=== PATIENT | female | born 1985 | race Caucasian/White ===

== ENCOUNTER 2017-12-21 03:28 | Inpatient (IN) ==
[2017-12-21] MEDS ORDERED: Lidocaine 1% Inj 50 ML Vial ONE (03:48)
[2017-12-21] MEDS ORDERED: Oxytocin 30 Units/500ml Premix 30 UNITS/500 ML BAG ONE (03:54)
[2017-12-21] MEDS ORDERED: Sod Chloride 0.9% Inj 1,000 ML IV.CONT PRN (03:57)
[2017-12-21] MEDS ORDERED: Sodium Chlor 0.9% Inj 500 ML IV.SIG PRN (03:57)
[2017-12-21] MEDS ORDERED: fentaNYL Citrate Inj 100 MCG/2 ML Ampul IV.PUSH PRN ×2 (03:57)
[2017-12-21] MEDS ORDERED: Oxytocin 30 Units/500ml Premix 30 UNITS/500 ML BAG IV.SIG ONE ×2 (03:57→14:54)
[2017-12-21] MEDS ORDERED: Naloxone Inj 0.4 MG/ML Vial IV.PUSH PRN ×2 (03:57→03:58)
[2017-12-21] MEDS ORDERED: Ibuprofen 400 MG Tablet PO PRN (03:58)
[2017-12-21] MEDS ORDERED: Benzocaine 20% Top Spray 60 ML Can TOPICAL PRN (03:58)
[2017-12-21] MEDS ORDERED: Witch Hazel 50%/Glyderin 12.5% 40 Pad Jar RECTAL PRN (03:58)
[2017-12-21] MEDS ORDERED: Bisacodyl 10 MG Supp RECTAL PRN (03:58)
[2017-12-21] MEDS ORDERED: Acetaminophen 325 MG Tablet PO PRN (03:58)
[2017-12-21] MEDS ORDERED: Zolpidem Tartrate 5 MG Tablet PO PRN (03:58)
[2017-12-21] MEDS ORDERED: Oxytocin 30 Units/500ml Premix 30 UNITS/500 ML BAG IV.CONT SCH (04:00)
[2017-12-21] MEDS ORDERED: Citric Acid/Sodium Citrate Liq 30 ML UDC PO SCH (04:00)
--- NOTE | 2017-12-21 04:03 | P.HPOB ---
History of Present Illness Primary Care Physician: No Primary Care Physician Dr. Banks Chief Complaint: Labor History of Present Illness: Patient is a 32-year-old white female at 39 weeks patient manuel Zuniga presents with precipitous labor completely dilated membranes ruptured in the OB ED. Weeks Gestation:: 39 Para: 1 : 2 - Inpatient Certification I certify that the inpatient services were ordered in accordance with Medicare regulations governing the order. This includes certification that hospital inpatient services are reasonable and necessary and in the case of services not specified as inpatient-only under 42 CFR 419.22(n), that they are appropriately provided as inpatient services in accordance to with the 2-midnight benchmark under 43 CFR 412.3(e) Estimated Total Length of Stay (Days): 2 Plans for Post Hospital Care: Home Review of Systems Constitutional: Denies anorexia, Denies body ache(s), Denies chills, Denies daytime sleepiness, Denies excessive sweating, Denies fatigue, Denies fever(s), Denies headache(s), Denies increased appetite, Denies lack of energy, Denies malaise, Denies night sweats, Denies weakness, Denies weight gain, Denies weight loss, Denies other Cardiovascular: Denies bluish discoloration of hand/feet, Denies chest pain, Denies chest pain at rest, Denies chest pain with activity, Denies excessive sweating, Denies fainting, Denies fast heart rate, Denies foot swelling, Denies generalized swelling, Denies irregular heart rhythm, Denies leg pain with activity, Denies leg sores, Denies leg swelling, Denies lightheadedness, Denies radiating jaw, neck or arm pain, Denies rapid, pounding, or irregular heartbeat , Denies shortness of breath, Denies shortness of breath with activity, Denies shortness of breath when lying down, Denies shortness of breath causing sudden awakening, Denies slow heart rate, Denies other Respiratory: Denies change in phlegm color, Denies chest congestion, Denies cough, Denies coughing up blood, Denies excessive phlegm production, Denies pain on inspiration, Denies pain with cough, Denies shortness of breath, Denies shortness of breath with activity, Denies snoring, Denies stridor, Denies wheezing, Denies other Genitourinary: Denies abnormal periods, Denies abnormal vaginal bleeding, Denies absent period, Denies bleeding between periods, Denies blood in urine, Denies difficulty starting urination, Denies difficulty urinating, Denies dribbling after urination, Denies frequent nighttime urination, Denies genital itching, Denies genital lesions, Denies heavy periods, Denies hot flashes, Denies light periods, Denies nipple discharge, Denies painful intercourse, Denies painful periods, Denies painful urination, Denies pelvic pain, Denies prolapse symptoms, Denies sexual problems, Denies side pain, Denies urinary incontinence, Denies urinary urgency, Denies vaginal discharge, Denies vaginal dryness, Denies vaginal odor, Denies vaginal itching, Denies other Musculoskeletal: Denies abnormal walking, Denies back pain, Denies body aches, Denies decreased muscle mass, Denies deformity, Denies joint pain, Denies joint swelling, Denies limited joint movement, Denies loss of height, Denies muscle cramps, Denies muscle weakness, Denies neck pain, Denies numbness, Denies radiating pain into limb, Denies stiffness, Denies tingling, Denies other Neurologic: Denies abnormal hearing, Denies abnormal movements, Denies abnormal speech, Denies abnormal walking, Denies behavioral changes, Denies burning sensations, Denies confusion, Denies dizziness, Denies fainting, Denies frequent falls, Denies headache(s), Denies lack of coordination, Denies localized weakness, Denies loss of vision, Denies memory loss, Denies numbness, Denies other visual disturbances, Denies radiating pain, Denies restless legs, Denies convulsions, Denies seizure-like activity, Denies sensory deficit, Denies tingling, Denies tingling/numbness/burning sensations, Denies tremor(s), Denies unsteadiness, Denies weakness, Denies other PMFSH - Tobacco History Smoking Status: Never smoker - Alcohol History How Often Do You Have a Drink Containing Alcohol: Never - Travel History History of Recent Travel: No Recent Travel in the [facility] Within the Last 8 Weeks: No Recent Travel Out of the Country Within the Last 8 Weeks: No Medications and Allergies Active Medications: Active Medications Acetaminophen (Tylenol) 650 mg PO Q4H PRN PRN Reason: PAIN SCALE 1 TO 2 Al Hydroxide/Mg Hydroxide (Milk Of Magnesia Liq) 30 ml PO Q12H PRN PRN Reason: Mild Constipation Benzocaine (Americaine 20% Top [place]) 1 spray TOPICAL Q4H PRN PRN Reason: For Perineum Discomfort Bisacodyl (Dulcolax Supp) 10 mg RECTAL DAILY PRN PRN Reason: SEVERE CONSITIPATION Citric Acid/Sodium Citrate (Sodium Citrate/Citric Acid Liq) 30 ml PO [employer] [facility] Stop: 12/25/17 03:59 Fentanyl Citrate (Fentanyl Inj) 50 mcg IV.PUSH Q1H PRN PRN Reason: Pain Scale 3 - 5 Fentanyl Citrate (Fentanyl Inj) 100 mcg IV.PUSH Q1H PRN PRN Reason: PAIN SCALE 6 TO 10 Lactated Ringer's (Lr 1000 Ml Inj) 1,000 mls @ 125 mls/hr IV.CONT .Q8H LAURA Lactated Ringer's (Lr 1000 Ml Inj) 1,000 mls @ 3,000 mls/hr IV.SIG UNSCH PRN PRN Reason: compromise or epidural Sodium Chloride (Ns Inj) 500 mls @ 1,000 mls/hr IV.SIG UNSCH PRN PRN Reason: SEE LABEL COMMENTS Sodium Chloride (Ns Inj) 1,000 mls @ 100 mls/hr IV.CONT .Q10H PRN PRN Reason: SEE LABEL COMMENTS Oxytocin (Pitocin 30 Units/Ns 500 Ml Premix) 30 units in 500 mls @ 999 mls/hr IV.SIG BOLUS ONE Stop: 12/21/17 04:27 Ibuprofen (Motrin) 800 mg PO Q8H PRN PRN Reason: For cramping Lactulose (Lactulose Liq) 30 ml PO DAILY PRN PRN Reason: SEVERE CONSITIPATION Lidocaine HCl (Xylocaine 1% Inj) 0.1 ml I-DERMAL PRN PRN PRN Reason: For IV start Stop: 12/24/17 03:56 Lidocaine HCl (Xylocaine 1% Inj) 10 ml INFILTRATN PRN PRN PRN Reason: For episiotomy repair Stop: 12/23/17 03:56 Mineral Oil (Muri-Lube Oil) 10 ml TOPICAL PRN PRN PRN Reason: PRN perineal massage Naloxone HCl (Narcan Inj) 0.1 mg IV.PUSH Q2M PRN PRN Reason: for opiate reversal Allergies Allergy/AdvReac Type Severity Reaction Status Date / Time No Known Allergies Allergy Unverified 12/21/17 03:56 Exam - Constitutional no acute distress, moderate distress - Routine HEENT Exam Head: Present: normocephalic, atraumatic Eye: Present: PERRL - Routine Respiratory Exam Present: CTA bilaterally - Routine Cardiovascular Exam Present: RRR - Routine Abdominal Exam Comments: Term size uterus - Routine Exam Comments: Cervix completely dilated on admission 100% effaced with initially bulging membranes were water broke in OB ED and was moderate meconium - Routine Neurological Exam Present: alert, oriented X3, CN II-XII intact Caprini VTE Risk Assessment Caprini VTE Risk Assessment: No/Low Risk (score <= 1) Caprini Risk Assessment Model: Point Value = 1 Point Value = 2 Point Value = 3 Point Value = 5 Age 41-60 Minor surgery BMI > 25 kg/m2 Swollen legs Varicose veins or History of unexplained or recurrent spontaneous Oral contraceptives or hormone replacement Sepsis (< 1 month) Serious lung disease, including pneumonia (< 1 month) Abnormal pulmonary function Acute myocardial infarction Congestive heart failure (< 1 month) History of inflammatory bowel disease Medical patient at bed rest Age 61-74 Arthroscopic surgery Major open surgery (> 45 min) Laparoscopic surgery (> 45 min) Malignancy Confined to bed (> 72 hours) Immobilizing plaster cast Central venous access Age >= 75 History of VTE Family history of VTE Factor V Leiden Prothrombin [id number] Lupus anticoagulant Anticardiolipin antibodies Elevated serum homocysteine Heparin-induced thrombocytopenia Other congenital or acquired thrombophilia Stroke (< 1 month) Elective arthroplasty Hip, pelvis, or leg fracture Acute spinal cord injury (< 1 month) Prophylaxis Regimen: Total Risk Factor Score Risk Level Prophylaxis Regimen 0-1 Low Early ambulation 2 Moderate Order ONE of the following: *Sequential Compression Device (SCD) *Heparin 5000 units SQ BID 3-4 Higher Order ONE of the following medications: *Heparin 5000 units SQ TID *Enoxaparin/Lovenox 40 mg SQ daily (WT < 150 kg, CrCl > 30 mL/min) *Enoxaparin/Lovenox 30 mg SQ daily (WT < 150 kg, CrCl > 10-29 mL/min) *Enoxaparin/Lovenox 30 mg SQ BID (WT < 150 kg, CrCl > 30 mL/min) AND/OR *Sequential Compression Device (SCD) 5 or more Highest Order ONE of the following medications: *Heparin 5000 units SQ TID (Preferred with Epidurals) *Enoxaparin/Lovenox 40 mg SQ daily (WT < 150 kg, CrCl > 30 mL/min) *Enoxaparin/Lovenox 30 mg SQ daily (WT < 150 kg, CrCl > 10-29 mL/min) *Enoxaparin/Lovenox 30 mg SQ BID (WT < 150 kg, CrCl > 30 mL/min) AND *Sequential Compression Device (SCD) Assessment and Plan - Diagnosis (1) Precipitate labor, delivered, current hospitalization Code(s): O62.3 - Precipitate labor Status: Acute (2) 39 weeks gestation of Code(s): Z3A.39 - 39 weeks gestation of Status: Acute - Plan 39 week intrauterine multiparous in precipitate labor on admission completely dilated in triage there moderate meconium noted patient taken to the labor room and delivered immediately afterwards without complication
--- NOTE | 2017-12-21 04:09 | P.OBDELI ---
Weeks Gestation: 39 Patient Started Active Labor: Yes Anesthesia: None Episiotomy: none Vaginal Delivery: Normal Presentation: Occiput anterior Nuchal Cord: None Delayed Cord Clamping (45 sec): Yes Placenta: Spontaneous delivery Laceration: None Estimated blood loss (mL): 100 : Male Male A Delivery Date: 12/21/17 Delivery Time: 03:45 score (1 min): 5 score (5 min): 9 Additional Information: Copious moderate meconium-stained fluid
[2017-12-21 04:20] LABS: Baso % (Auto) 0.4 % (0.0-2.0); Eos # (Auto) 0.1 th/mm3 (0.0-0.4); Eos % (Auto) 0.6 % (0.0-4.0); Hematocrit 34.9 % (35.0-46.0); Hemoglobin 11.7 gm/dL (11.6-15.3); Lymph # (Auto) 2.8 th/mm3 (1.0-4.8); Lymph % (Auto) 24.5 % (9.0-44.0); Mean Corpuscular HGB Conc 33.6 % (32.0-36.0); Mean Corpuscular Hemoglobin 27.9 pg (27.0-34.0); Mean Platelet Volume 8.3 fL (7.0-11.0); Mono # (Auto) 0.9 th/mm3 (0.0-0.9); Mono % (Auto) 8.1 % (0.0-8.0); Neut # (Auto) 7.6 th/mm3 (1.8-7.7); Neut % (Auto) 66.4 % (16.0-70.0); Platelet Count 236 th/mm3 (150-450); Red Cell Distribution Width 12.8 % (11.6-17.2); White Blood Count 11.4 th/mm3 (4.0-11.0)
[2017-12-21 04:34] LABS: Bilirubin,Urine Negative (Negative); Clarity,Urine Clear (Clear); Color,Urine Yellow (Yellw/Straw); Glucose,Urine (UA) Negative (Negative); Leukocyte Esterase,Urine Trace (Negative); Mucus,Urine Few /lpf (Occasional); Nitrite,Urine Negative (Negative); Specific Gravity,Urine 1.015 (1.002-1.035); Squamous Epithelial Cell,Urine 2 /hpf (0-5)
[2017-12-21 04:36] LABS: Amphetamine Urine With Conf Neg (Neg); Benzodiazepine Urine With Conf Neg (Neg)
--- NOTE | 2017-12-21 07:57 | P.PNOB ---
Subjective Post day: 0 Interval history: Doing well, pain controlled, ambulating without difficulty voiding spontaneously , vaginal bleeding equal to / greater than menses, no clots or abdominal pain. Objective Vital Signs/I&O: Vital Signs 12/21/17 03:35 12/21/17 04:00 12/21/17 04:09 Temperature Pulse Rate 71 73 Respiratory Rate 20 15 Blood Pressure 118/77 131/81 12/21/17 04:15 12/21/17 04:45 12/21/17 05:00 Temperature 98.8 F Pulse Rate 83 73 68 Respiratory Rate 18 Blood Pressure 123/86 104/84 124/72 12/21/17 05:15 12/21/17 05:30 12/21/17 05:45 Temperature Pulse Rate 81 70 77 Respiratory Rate Blood Pressure 116/78 121/81 128/85 12/21/17 06:13 Temperature 98.3 F Pulse Rate 65 Respiratory Rate 18 Blood Pressure 129/75 Intake & Output 12/20/17 12/21/17 12/21/17 18:59 06:59 18:59 Weight 71.668 kg Result Diagrams: 12/21/17 03:50 Objective Remarks: GENERAL: Well-nourished, well-developed patient. CARDIOVASCULAR: Regular rate and rhythm without murmurs, gallops, or rubs. RESPIRATORY: Breath sounds equal bilaterally. No accessory muscle use. ABDOMEN/GI: Abdomen soft, non-tender. Fundus: Firm, non-tender at umbilicus. GENITOURINARY: Light to moderate bleeding. EXTREMITIES: No cyanosis or edema, non-tender, without signs of DVT. Medications and IVs: Active Medications Acetaminophen (Tylenol) 650 mg PO Q4H PRN PRN Reason: PAIN SCALE 1 TO 2 Al Hydroxide/Mg Hydroxide (Milk Of Magnesia Liq) 30 ml PO Q12H PRN PRN Reason: Mild Constipation Benzocaine (Americaine 20% Top [place]) 1 spray TOPICAL Q4H PRN PRN Reason: For Perineum Discomfort Bisacodyl (Dulcolax Supp) 10 mg RECTAL DAILY PRN PRN Reason: SEVERE CONSITIPATION Citric Acid/Sodium Citrate (Sodium Citrate/Citric Acid Liq) 30 ml PO EXAM PROCTOR LAURA Stop: 12/25/17 03:59 Diphtheria/Pertussis/Tetanus Vacc (Boostrix Vaccine Inj) 0.5 ml IM .ONCE ONE Stop: 12/21/17 16:01 Fentanyl Citrate (Fentanyl Inj) 50 mcg IV.PUSH Q1H PRN PRN Reason: Pain Scale 3 - 5 Fentanyl Citrate (Fentanyl Inj) 100 mcg IV.PUSH Q1H PRN PRN Reason: PAIN SCALE 6 TO 10 Lactated Ringer's (Lr 1000 Ml Inj) 1,000 mls @ 125 mls/hr IV.CONT .Q8H [facility] Last Admin: 12/21/17 04:54 Dose: 125 mls/hr Lactated Ringer's (Lr 1000 Ml Inj) 1,000 mls @ 3,000 mls/hr IV.SIG UNSCH PRN PRN Reason: compromise or epidural Sodium Chloride (Ns Inj) 500 mls @ 1,000 mls/hr IV.SIG UNSCH PRN PRN Reason: SEE LABEL COMMENTS Sodium Chloride (Ns Inj) 1,000 mls @ 100 mls/hr IV.CONT .Q10H PRN PRN Reason: SEE LABEL COMMENTS Oxytocin (Pitocin 30 Units/Ns 500 Ml Premix) 30 units in 500 mls @ 100 mls/hr IV.CONT Q5H [facility] Stop: 12/21/17 08:59 Last Admin: 12/21/17 04:55 Dose: 100 mls/hr Ibuprofen (Motrin) 800 mg PO Q8H PRN PRN Reason: For cramping Lactulose (Lactulose Liq) 30 ml PO DAILY PRN PRN Reason: SEVERE CONSITIPATION Lidocaine HCl (Xylocaine 1% Inj) 0.1 ml I-DERMAL PRN PRN PRN Reason: For IV start Stop: 12/24/17 03:56 Lidocaine HCl (Xylocaine 1% Inj) 10 ml INFILTRATN PRN PRN PRN Reason: For episiotomy repair Stop: 12/23/17 03:56 Measles/Mumps/Rubella Vaccine Live (M-M-R Ii Vaccine Inj) 0.5 ml SQ .ONCE ONE Stop: 12/21/17 16:01 Mineral Oil (Muri-Lube Oil) 10 ml TOPICAL PRN PRN PRN Reason: PRN perineal massage Naloxone HCl (Narcan Inj) 0.1 mg IV.PUSH Q2M PRN PRN Reason: for opiate reversal Naloxone HCl (Narcan Inj) 0.1 mg IV.PUSH Q2M PRN PRN Reason: for opiate reversal Ondansetron HCl (Zofran Odt) 4 mg PO Q6H PRN PRN Reason: NAUSEA OR VOMITING Oxycodone/Acetaminophen (Percocet 5/325 Mg) 1 tab PO Q4H PRN PRN Reason: PAIN SCALE 3 TO 5 Senna/Docusate Sodium (Cony-Colace) 1 tab PO BID LAURA Sennosides (Senokot) 17.2 mg PO Q12H PRN PRN Reason: Moderate Constipation Sodium Chloride (Ns Flush) 2 ml IV.FLUSH BID LAURA Sodium Chloride (Ns Flush) 2 ml IV.FLUSH PRN PRN PRN Reason: FLUSH AFTER USING IV ACCESS Witch Christina/Glycerin (Tucks Pads) 1 applicatio RECTAL QID PRN PRN Reason: HEMORRHOIDS Zolpidem Tartrate (Ambien) 5 mg PO HS PRN PRN Reason: SLEEP Assessment and Plan - Plan 32-year-old status post at 39 weeks and 2 days 1. day #0: Status post precipitous delivery this AM, afebrile, vital signs stable, continue routine care. Anticipate discharge home in the next 48 hours, patient desires discharge home tomorrow. -Male , desires circumcision. to be performed tomorrow prior to discharge.
[2017-12-21] MEDS ORDERED: Senna/Docusate Sodium 8.6/50 MG Tablet PO SCH (09:00)
[2017-12-21] MEDS ORDERED: Sertraline 100 MG Tablet PO SCH (09:00)
[2017-12-21] MEDS ORDERED: Lidocaine PF 1% Inj 5 ML Syringe INFILTRATN ONE (12:00)
--- NOTE | 2017-12-21 14:30 | P.OBGPN ---
Was called by nursing to assess patient's continued vaginal bleeding, she has had mild to moderate bleeding per the nursing since this AM, she passed a large "softball" size clot recently, she denies any symptoms of hypovolemia. Earlier today had some right-sided facial numbness, tingling, trouble finding her words, , and felt a little uneasy on her feet. The symptoms have since resolved. O Blood pressure: 125/79, pulse 79, respiratory rate 18 Abdomen: Soft, nontender, uterus boggy, not firm, slow trickle from vagina, bimanual deferred. a/p: 32-year-old status post at 39 weeks and 2 days 1. hemorrhage: Likely related to atony, and/or retained products, recommended pad counts, per nursing inability to weigh these, so i have an inaccurate assessment or her EBL, patient hemodynamically stable. Collect stat CBC, methargen series, bolus 30 units of Pitocin. Reassess later this afternoon. Patient n.p.o. at this time, may consider evaluation under anesthesia and D&C if no improvement by this evening. -Strict I's and O's -Bedside ultrasound showed ES at fundus 3.3 cm, lower uterine segment 3.2 cm. Echogenic material, could be blood versus retained products. The delivery note states the placenta was "intact"
[2017-12-21] MEDS ORDERED: Methylergonovine Inj 0.2 MG/ML Ampul IM ONE (14:52)
[2017-12-21] MEDS ORDERED: Diphtheria/Tetanus/Pertussis Vaccine Inj 0.5 ML Syringe IM ONE (16:00)
[2017-12-21] MEDS ORDERED: Measles/Mumps/Rubella Vaccine Inj 0.5 ML Vial SQ ONE (16:00)
[2017-12-21 16:11] LABS: Mean Corpuscular HGB Conc 34.6 % (32.0-36.0); Mean Corpuscular Hemoglobin 28.9 pg (27.0-34.0); Mean Corpuscular Volume 83.6 fL (80.0-100.0); Mean Platelet Volume 8.4 fL (7.0-11.0); Platelet Count 203 th/mm3 (150-450); Red Blood Count 3.47 mil/mm3 (4.00-5.30); Red Cell Distribution Width 12.9 % (11.6-17.2); White Blood Count 10.6 th/mm3 (4.0-11.0)
--- NOTE | 2017-12-21 19:02 | P.OBGPN ---
Nursing called stating that patient continues to have moderate bleeding, vital signs stable, based on continued bleeding and concern for retained products plan will be to proceed with evaluation under anesthesia and dilation and curettage. Discussed with nursing to sign consents with patient, reviewed the risks, benefits and expected outcomes of this with the patient at her previous encounter.
--- NOTE | 2017-12-21 19:12 | P.OP ---
Date of procedure: 12/21/17 Surgeon: Arcadio Bass MD Operation and Findings: Preoperative diagnosis: 1. day #0 2. Possible retained products of conception vs uterine atony 3. hemorrhage Postop diagnosis 1. Same as above status post evaluation under anesthesia and D&C Procedure 1. Evaluation under anesthesia and endometrial curettage Surgeon Dr. Arcadio Bass Men'S Designer: [place] [facility] OR scrub staff and Dr. Christianne Ramirez assisted with the ultrasound. Findings: 1. Normal external female genitalia vagina and cervix. 2. Slightly boggy uterus, around 12-14 weeks size, no evidence of retained products via ultrasound or D&C. 3. BT cath balloon placed in the uterus with 180 cc of normal saline and 2 rolls of moist kerlex tied together in the vagina for packing. . Anesthesia: Spinal Specimen: Endometrial curettings to pathology, routine Estimated blood loss: 200 cc Fluid replacement: 600 cc lactated Ringer's Urine output: 125 cc clear via in and out cath at the beginning of the procedure DVT prophylaxis: Sequential compression devices throughout the case Antibiotics: 200 mg doxycycline preoperatively Counts: correct x2 Time out done: yes Disposition: Stable to PACU then likely Indications: 32-year-old had a precipitous vaginal delivery this morning, she continued vaginal bleeding that was moderate to heavy and passage of clots throughout the day, hemoglobin trended down but patient was asymptomatic with stable vitas. A bedside ultrasound showed possible retained products versus blood clot, patient had poor response to IM methargen, given concerns for retained products versus refractory uterine atony plan was made for evaluation under anesthesia. See separate note for further details and consent. Description of procedure: The patient was taken to the operating room and the spinal was placed, she was positioned in lithotomy position in candycane stirrups, the vagina was prepped and draped in sterile fashion. The bladder was drained. A weighted speculum was placed posteriorly and a [place] anteriorly the cervix was grasped with a ring ring forcep, a banjo curettage was used under ultrasound guidance to gently curette the posterior anterior parikh of the uterus, mostly blood clot returned with no obvious retained products. Patient uterus was felt to be somewhat atonic, and with the continued slow blood flow from the uterus and no lacerations to the vagina or cervix, a BT cath balloon was placed under ultrasound guidance to the fundus, it was instilled with 180 cc of normal saline. The vagina was packed with 2 rolls of moistened Kerlix tied together. A Arzola was inserted in the bladder, and a Arzola bag was connected to the BT cath balloon. The patient tolerated the procedure well. She was transferred to the PACU in stable condition.
[2017-12-21] MEDS ORDERED: fentaNYL Citrate Inj 250 MCG/5 ML Ampul ONE (19:44)
[2017-12-21] MEDS ORDERED: Doxycycline Inj 200 MG in Sodium Chlor 0.9% Inj 250 ML IV.SIG ONE (20:00)
[2017-12-21] MEDS ORDERED: Bupivacaine/Dextrose 0.75% Inj 2 ML Ampul ONE (20:13)
[2017-12-21 23:34] VITALS: RESP 18
[2017-12-22 05:58] LABS: Baso % (Auto) 0.5 % (0.0-2.0); Eos % (Auto) 0.4 % (0.0-4.0); Hematocrit 28.8 % (35.0-46.0); Lymph # (Auto) 1.7 th/mm3 (1.0-4.8); Lymph % (Auto) 18.1 % (9.0-44.0); Mean Corpuscular HGB Conc 34.6 % (32.0-36.0); Mean Corpuscular Hemoglobin 28.6 pg (27.0-34.0); Mean Corpuscular Volume 82.7 fL (80.0-100.0); Mean Platelet Volume 8.3 fL (7.0-11.0); Mono # (Auto) 0.6 th/mm3 (0.0-0.9); Mono % (Auto) 6.9 % (0.0-8.0); Neut # (Auto) 6.8 th/mm3 (1.8-7.7); Neut % (Auto) 74.1 % (16.0-70.0); Platelet Count 177 th/mm3 (150-450); Red Blood Count 3.48 mil/mm3 (4.00-5.30); White Blood Count 9.2 th/mm3 (4.0-11.0)
--- NOTE | 2017-12-22 08:29 | P.PNOB ---
Subjective Post day: 1 (pod#1 s/p EUA, D&C for PP hemorrage, concern for retained POC) Interval history: pt doing well this morning, no pain from Bakri balloon, placed after D&C last evening; scant bleeding on pad; desires to eat, strongly desires to ambulate and if possible to go home this evening; no dizziness no fatigue no fever no chills, , pain 0/10 currently, when cramps 3/10 Objective Vital Signs/I&O: Vital Signs 12/21/17 13:26 12/21/17 20:59 12/21/17 21:00 Temperature 97.8 F Pulse Rate 79 68 Respiratory Rate 18 12 Blood Pressure 125/79 119/78 Pulse Oximetry 98 98 12/21/17 21:15 12/21/17 21:30 12/21/17 21:45 Temperature 98.2 F Pulse Rate 61 65 63 Respiratory Rate 11 L 12 14 Blood Pressure 118/75 143/80 H 131/81 Pulse Oximetry 100 100 100 12/21/17 23:33 12/22/17 04:00 Temperature 98.0 F 98.2 F Pulse Rate 72 67 Respiratory Rate 18 18 Blood Pressure 107/71 149/85 H Pulse Oximetry Intake & Output 12/21/17 12/22/17 12/22/17 18:59 06:59 18:59 Intake Total 400 / 400 Output Total 475 / 475 Balance -75 / -75 Intake: Anesthesia Amount 400 / 400 Output: Estimated Blood Loss 100 / 100 Urine Amount (Catheter) 375 / 375 Indwelling Urethral Catheter 375 / 375 Result Diagrams: 12/22/17 05:10 Objective Remarks: GENERAL: Well-nourished, well-developed patient. CARDIOVASCULAR: Regular rate and rhythm without murmurs, gallops, or rubs. RESPIRATORY: Breath sounds equal bilaterally. No accessory muscle use. ABDOMEN/GI: Abdomen soft, non-tender. Fundus: Firm, non-tender at umbilicus. GENITOURINARY: Light bleeding on pad; Kerlex x 2 removed vaginally; no active bleeding; 90cc of fluid taken off Bakri balloon; fundus remains firm and no active bleeding. EXTREMITIES: No cyanosis or edema, non-tender, without signs of DVT. 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 [facility] Stop: 12/25/17 03:59 Fentanyl Citrate (Fentanyl Inj) 50 mcg IV.PUSH Q1H PRN PRN Reason: Pain Scale 3 - 5 Fentanyl Citrate (Fentanyl Inj) 100 mcg IV.PUSH Q1H PRN PRN Reason: PAIN SCALE 6 TO 10 Lactated Ringer's (Lr 1000 Ml Inj) 1,000 mls @ 125 mls/hr IV.CONT .Q8H [facility] Last Admin: 12/21/17 04:54 Dose: 125 mls/hr Lactated Ringer's (Lr 1000 Ml Inj) 1,000 mls @ 3,000 mls/hr IV.SIG UNSCH PRN PRN Reason: compromise or epidural Sodium Chloride (Ns Inj) 500 mls @ 1,000 mls/hr IV.SIG UNSCH PRN PRN Reason: SEE LABEL COMMENTS Sodium Chloride (Ns Inj) 1,000 mls @ 100 mls/hr IV.CONT .Q10H PRN PRN Reason: SEE LABEL COMMENTS Ibuprofen (Motrin) 800 mg PO Q8H PRN PRN Reason: For cramping Lactulose (Lactulose Liq) 30 ml PO DAILY PRN PRN Reason: SEVERE CONSITIPATION Lidocaine HCl (Xylocaine 1% Inj) 0.1 ml I-DERMAL PRN PRN PRN Reason: For IV start Stop: 12/24/17 03:56 Lidocaine HCl (Xylocaine 1% Inj) 10 ml INFILTRATN PRN PRN PRN Reason: For episiotomy repair Stop: 12/23/17 03:56 Methylergonovine Maleate (Methergine) 0.2 mg PO Q4HR [facility] Stop: 12/22/17 19:59 Last Admin: 12/21/17 18:58 Dose: 0.2 mg Mineral Oil (Muri-Lube Oil) 10 ml TOPICAL PRN PRN PRN Reason: PRN perineal massage Miscellaneous Information ([facility] Nursing Information) 1 each OTHER UNSCH PRN PRN Reason: SEE LABEL COMMENTS Stop: 12/22/17 20:59 Naloxone HCl (Narcan Inj) 0.1 mg IV.PUSH Q2M PRN PRN Reason: for opiate reversal Naloxone HCl (Narcan Inj) 0.1 mg IV.PUSH Q2M PRN PRN Reason: for opiate reversal Ondansetron HCl (Zofran Odt) 4 mg PO Q6H PRN PRN Reason: NAUSEA OR VOMITING Oxycodone/Acetaminophen (Percocet 5/325 Mg) 1 tab PO Q4H PRN PRN Reason: PAIN SCALE 3 TO 5 Senna/Docusate Sodium (Cony-Colace) 1 tab PO BID [facility] Last Admin: 12/21/17 08:17 Dose: 1 tab Sennosides (Senokot) 17.2 mg PO Q12H PRN PRN Reason: Moderate Constipation Sertraline HCl (Zoloft) 100 mg PO DAILY [facility] Last Admin: 12/21/17 12:50 Dose: Not Given Sodium Chloride (Ns Flush) 2 ml IV.FLUSH BID [facility] Last Admin: 12/21/17 08:18 Dose: Not Given Sodium Chloride (Ns Flush) 2 ml IV.FLUSH PRN PRN PRN Reason: FLUSH AFTER USING IV ACCESS Witch Christina/Glycerin (Tucks Pads) 1 applicatio RECTAL QID PRN PRN Reason: HEMORRHOIDS Zolpidem Tartrate (Ambien) 5 mg PO HS PRN PRN Reason: SLEEP Assessment and Plan - Diagnosis (1) Precipitate labor, delivered, current hospitalization Code(s): O62.3 - Precipitate labor Status: Acute (2) hemorrhage Code(s): O72.1 - Other immediate hemorrhage Status: Acute - Plan 32-year-old status post at 39 weeks and 2 days 1. day #1: Status post precipitous delivery aroudn 3A yesterday - yesterday afternoon pt had delayed PP hemorrhage/atony, was taken to OR by Dr. Bass due to concern for possible retained products, D&C performed & Bakri balloon placed; did well overnight, afebrile, vital signs normal, minimal blood on pad; Kerlex x 2 removed this AM & 1/2 volume deflated from balloon; will plan to return at noon to hopefully remove balloon and tang; ok to eat, recheck CBC @ noon; if stable over 8 hours post balloon removal will plan discharge as pt & very motivated & have good access to transportation, are reliable -Male , desires circumcision. to be performed this AM Discharge Planning: pending, not yet meeting criteria (2) hemorrhage Qualifiers: hemorrhage type: other immediate Qualified Code(s): O72.1 - Other immediate hemorrhage
[2017-12-22 12:08] VITALS: O2SAT 93
[2017-12-22 13:31] LABS: Baso % (Auto) 0.4 % (0.0-2.0); Eos % (Auto) 0.3 % (0.0-4.0); Hematocrit 31.6 % (35.0-46.0); Hemoglobin 10.8 gm/dL (11.6-15.3); Lymph # (Auto) 1.2 th/mm3 (1.0-4.8); Lymph % (Auto) 11.8 % (9.0-44.0); Mean Corpuscular HGB Conc 34.2 % (32.0-36.0); Mean Corpuscular Hemoglobin 28.6 pg (27.0-34.0); Mean Corpuscular Volume 83.6 fL (80.0-100.0); Mean Platelet Volume 7.9 fL (7.0-11.0); Mono # (Auto) 0.5 th/mm3 (0.0-0.9); Mono % (Auto) 4.8 % (0.0-8.0); Neut # (Auto) 8.3 th/mm3 (1.8-7.7); Neut % (Auto) 82.7 % (16.0-70.0); Platelet Count 226 th/mm3 (150-450); Red Blood Count 3.78 mil/mm3 (4.00-5.30); Red Cell Distribution Width 12.9 % (11.6-17.2); White Blood Count 10.1 th/mm3 (4.0-11.0)
[2017-12-22 15:51] VITALS: BP 121/73; PULSE 88
[2017-12-22 15:52] VITALS: TEMP 98.3
--- NOTE | 2017-12-22 15:59 | P.DS ---
Date of admission: 12/21/17 03:39 Primary care physician: No Primary Care Physician Attending physician on discharge: Merle Bang Anticipated date of discharge: 12/22/17 Brief History from admission: Patient is a 32-year-old white female at 39 weeks patient of Nadia presented with precipitous labor completely dilated membranes ruptured in the OB ED. Delivered shortly therafter, OB hospitalist present. On PPD#0 pt had heavy bleeding and uterine atony, concern for retained products of conception, was taken to OR for exam under anesthesia and dilation and curettage. No products found but as precaution Bakri balloon was placed postop and tang remained in place overnight PPD#0. DS: Diagnosis - Discharge Diagnosis (1) Precipitate labor, delivered, current hospitalization Status: Acute (2) hemorrhage Status: Acute DS: Medications - Discharge Medications Prescriptions: ibuprofen [Motrin IB] 600 mg PO TID-QID PRN #30 tab PRN Reason: Pain DS: Summary Hospital Course: Patient is a 32-year-old white female at 39 weeks patient of Nadia presented with precipitous labor completely dilated membranes ruptured in the OB ED. Delivered shortly therafter, OB hospitalist present. On PPD#0 pt had heavy bleeding and uterine atony, concern for retained products of conception, was taken to OR for exam under anesthesia and dilation and curettage. No products found but as precaution Bakri balloon was placed postop and tang remained in place overnight PPD#0. On POD#1 Bakri was removed without complication, minimal bleeding, uterus firm and H/H stable. Asymptomatic. Once able to ambulate, void, and tolerate diet pt was discharged to home with strict precautions and instructions for 1 week office follow up visit. - Time Spent with Patient Total time spent providing and/or coordinating discharge services: Greater than 30 minutes Exam Vital signs: Vital Signs 12/21/17 20:59 12/21/17 21:00 12/21/17 21:15 Temperature 97.8 F Pulse Rate 68 61 Respiratory Rate 12 11 L Blood Pressure 119/78 118/75 Pulse Oximetry 98 98 100 12/21/17 21:30 12/21/17 21:45 12/21/17 23:33 Temperature 98.2 F 98.0 F Pulse Rate 65 63 72 Respiratory Rate 12 14 18 Blood Pressure 143/80 H 131/81 107/71 Pulse Oximetry 100 100 08/01/18 04:00 12/22/17 08:00 12/22/17 12:00 Temperature 98.2 F 97.9 F 98.2 F Pulse Rate 67 94 H 93 H Respiratory Rate 18 18 18 Blood Pressure 149/85 H 118/75 119/79 Pulse Oximetry 98 93 L 12/22/17 15:51 Temperature 98.3 F Pulse Rate 88 Respiratory Rate 18 Blood Pressure 121/73 Pulse Oximetry Intake & Output 12/21/17 12/22/17 12/22/17 18:59 06:59 18:59 Intake Total 400 / 400 Output Total 475 / 475 Balance -75 / -75 Intake: Anesthesia Amount 400 / 400 Output: Estimated Blood Loss 100 / 100 Urine Amount (Catheter) 375 / 375 Indwelling Urethral Catheter 375 / 375 - Constitutional no acute distress - Routine HEENT Exam Head: Present: normocephalic, atraumatic ENT: Present: mucous membranes moist - Routine Neck Exam Present: supple, full ROM - Routine Chest/Breast/Axilla Exam Chest wall: Absent: tenderness, mass - Routine Respiratory Exam Absent: accessory muscle use, respiratory distress - Routine Cardiovascular Exam Present: RRR. Absent: murmur - Routine Abdominal Exam Present: soft. Absent: tenderness, distended - Routine Exam External: Present: normal urethra appearance. Absent: swelling Comments: minimal lochia after removal of Bakri balloon; firm fundus at U-2 - Routine Extremities Exam Absent: cyanosis, edema - Routine Skin Exam Present: intact. Absent: cyanosis - Routine Neurological Exam Present: alert, oriented X3 Results Procedures completed during hospitalization: vaginal delivery exam under anesthesia dilation and curettage Pending studies at discharge: Pending at discharge 12/21/17 07:57 Surgical [PTH] Routine Labs on day of discharge: Labs from last 24 hours 12/22/17 12/22/17 12/21/17 13:17 05:10 21:29 WBC 10.1 9.2 RBC 3.78 L 3.48 L Hgb 10.8 L 10.0 L Hct 31.6 L 28.8 L MCV 83.6 82.7 MCH 28.6 28.6 MCHC 34.2 34.6 RDW 12.9 13.0 Plt Count 226 177 MPV 7.9 8.3 Neut % (Auto) 82.7 H 74.1 H Lymph % (Auto) 11.8 18.1 [place] % (Auto) 4.8 6.9 Eos % (Auto) 0.3 0.4 Baso % (Auto) 0.4 0.5 Neut # (Auto) 8.3 H 6.8 Lymph # (Auto) 1.2 1.7 [place] # (Auto) 0.5 0.6 Eos # (Auto) 0.0 0.0 Baso # (Auto) 0.0 0.0 WBC Differential . . Differential Comment Auto diff final Auto diff final Blood Type A Positive Antibody Screen Negative MTS Gel Crossmatch See Detail 12/21/17 15:28 WBC 10.6 RBC 3.47 L Hgb 10.0 L Hct 29.0 L MCV 83.6 MCH 28.9 MCHC 34.6 RDW 12.9 Plt Count 203 MPV 8.4 Neut % (Auto) Lymph % (Auto) [place] % (Auto) Eos % (Auto) Baso % (Auto) Neut # (Auto) Lymph # (Auto) [place] # (Auto) Eos # (Auto) Baso # (Auto) WBC Differential Differential Comment Blood Type Antibody Screen MTS Gel Crossmatch Discharge Plan - Discharge Disposition Patient Disposition: 01 Discharge Home - Discharge Condition Condition: Stable - Discharge Order Discharge Orders: Discharge Order (Routine); Ordered 12/22/17 Ordered By: Arcadio Bass - Discharge Details Anticipated Discharge Date: 12/22/17 - Physicians Team Primary Care Provider: Primary Care Viky Yoon Attending Provider: Allie Banks
== END 2017-12-22 17:31 | disposition home or self-care (01) ==
LOC: HOBED 03:28 → H2E 03:39 → H1EA 06:02
PROVIDERS: ADMIT Obstetrics & Gynecology; ATTEND Obstetrics & Gynecology